=== PATIENT | female | born 1990 | race Two or more races ===

== ENCOUNTER 2018-02-15 16:19 | Emergency (ER) | payer OTHER ==
[~2018-02-15] VITALS: Ht 157.5 cm; Wt 126.4 kg
[2018-02-15 16:25] VITALS: BP 136/66
== END 2018-02-15 17:59 | disposition home or self-care (01) ==
LOC: ED 16:50
DX: F41.1 Generalized anxiety disorder (principal)
CPT/HCPCS: 93005; 99284

== ENCOUNTER 2019-01-24 04:15 | Emergency (ER) | payer OTHER ==
[~2019-01-24] VITALS: Ht 157.5 cm; Wt 130.8 kg
--- NOTE | 2019-01-24 04:34 | NUR ---
PT STATES "I FEEL THAT ALL OF MY FOOD IS GETTING STUCK IN MY ESOPHAGUS". DENIES CP,STATES " MY ESOPHAGUS JUST FEELS UNCOMFORTABLE". MONITORS APPLIED, SIDERAIL SUP X2, CALL LIGHT WITHIN REACH. AWAITING ERP FOR EVAL AND ORDERS
[2019-01-24] MEDS ORDERED: WARF-36 PO (04:37)
[2019-01-24] MEDS ORDERED: METO50TA82 PO (04:37)
[2019-01-24 05:17] LABS: BASOPHILS # (AUTO) 0.08 x10^3/uL (0-0.1); BASOPHILS % (AUTO) 1 % (0-1); EOSINOPHILS # (AUTO) 0.19 x10^3/uL (0-0.4); EOSINOPHILS % (AUTO) 2 % (1-7); LYMPHOCYTES # (AUTO) 3.05 x10^3/uL (1-3.4); LYMPHOCYTES % (AUTO) 28 % (22-44); MD NO; MEAN CORPUSCULAR HEMOGLOBIN 27.9 pg (27.0-34.8); MEAN CORPUSCULAR HGB CONC 33.1 g/dL (32.4-35.8); MEAN CORPUSCULAR VOLUME 84.3 fL (80-100); MEAN PLATELET VOLUME 8.1 fL (7.4-10.4); MONOCYTES # (AUTO) 0.46 x10^3/uL (0.2-0.8); MONOCYTES % (AUTO) 4 % (2-9); NEUTROPHILS # (AUTO) 7.04 x10^3/uL (1.8-6.8); NEUTROPHILS % (AUTO) 65 % (42-75); PLATELET COUNT 258 x10^3/uL (130-400); RED BLOOD COUNT 4.89 x10^6/uL (3.82-5.3)
[2019-01-24 05:27] LABS: ALANINE AMINOTRANSFERASE 20 U/L (12-78); ALBUMIN 3.1 g/dL (3.4-5.0); ANION GAP 8 mmol/L (5-15); CALCIUM 8.4 mg/dL (8.5-10.1); CHLORIDE 108 mmol/L (98-107); CREATININE 0.57 mg/dL (0.55-1.02)
[2019-01-24 05:28] LABS: INTERNATIONAL NORMALIZED RATIO 2.76 (0.93-1.1); PROTHROMBIN TIME 27.9 Seconds (9.6-11.5)
[2019-01-24 05:32] LABS: ALKALINE PHOSPHATASE 112 U/L (45-117); BILIRUBIN,TOTAL 0.9 mg/dL (0.2-1.0); TOTAL PROTEIN 6.9 g/dL (6.4-8.2); TROPONIN I < 0.015 ng/mL (0.000-0.045)
--- NOTE | 2019-01-24 05:35 | NUR ---
pt up to rr with steady gait
--- NOTE | 2019-01-24 05:52 | NUR ---
PT SITTING UP ON GURNEY, IV SITE STARTED, DENIES FURTHER NEEDS, MONITORS IN PLACE, CALL LIGHT WITHIN REACH. AWAITING CT
[2019-01-24] MEDS ORDERED: SODIUM CHLORIDE FLUSH 10ML SYR IVF ONE (06:00)
--- NOTE | 2019-01-24 06:53 | NUR ---
REPORT GIVEN TO ALEX OLSON
[2019-01-24 06:55] VITALS: BP 127/77
== END 2019-01-24 07:00 | disposition home or self-care (01) ==
LOC: ED 06:06
DX: J15.9 Unspecified bacterial pneumonia (principal); R07.89 Other chest pain; D68.8 Other specified coagulation defects
CPT/HCPCS: 36415; 71045; 71275; 76700; 80053; 83690; 84484; 85025; 85610; 85730; 93005; 99284